=== PATIENT | female | born 1960 | race Caucasian/White ===

== ENCOUNTER 2017-10-13 08:20 | Outpatient (CLI) | payer BC | END 2017-10-13 21:15 | disposition home or self-care (01) | LOC: SMA 08:20 | PROVIDERS: ATTEND Specialist | DX: N60.01 Solitary cyst of right breast (principal); R92.1 Mammographic calcification found on diagnostic imaging of breast | CPT/HCPCS: 76641; 77066 ==

== ENCOUNTER 2018-03-25 09:55 | Outpatient (CLI) | payer BC | END 2018-03-25 18:43 | disposition home or self-care (01) | LOC: SUS 09:55 | PROVIDERS: ATTEND Specialist | DX: N63.13 Unspecified lump in the right breast, lower outer quadrant (principal) | CPT/HCPCS: 76641 ==